=== PATIENT | female | born 1960 | race African-American/Black ===

== ENCOUNTER 2023-02-03 14:04 | Outpatient (AMB) | payer MEDICARE, MEDICAID, SELFPAY ==
--- NOTE | 2023-02-03 14:10 | HO.NEPHOV ---
HPI HPI Comments History of Present Illness Details I had the privilege of seeing Mir in follow-up for mild chronic kidney disease and hypertension. She feels well. She does not have any hematuria, dysuria, pedal edema, dizziness, chest pain, shortness of breath, nausea, vomiting or diarrhea. She is compliant with her medications. She avoids any nonsteroidal anti-inflammatory medications. She has no history of recent drug use. She tries to remain herself well hydrated. There were no new active issues at the time of this office visit. [facility] Medical History (Updated 02/07/23 @ 06:10 by Rupert Portillo MD) Chronic kidney disease Surgical History (Updated 02/03/23 @ 14:18 by Magy Ruiz MA) H/O knee surgery H/O toe surgery H/O tubal ligation Social History (Updated 02/03/23 @ 14:21 by Magy Ruiz MA) Alcohol intake: current Alcohol intake frequency: holidays/special occasions only Patient Tobacco Use Status: Never used Tobacco Substance Use Type: Marijuana Vital Signs 02/03/23 14:12 Height 5 ft 2.5 in Weight 174 lb 6 oz BMI 31.4 BP 116/72 Blood Pressure Location Lt brachial Position Sitting Pulse 62 Pulse Source Pulse Oximeter Physical Exam Vital Signs: Last Vital Signs Pulse 62 02/03/23 14:12 BP 116/72 02/03/23 14:12 BMI result Body Mass Index 31.4 Const General: comfortable and no acute distress Orientation/consciousness: patient oriented x3 HEENT Head: Yes normocephalic Mouth: Normal oral and palatal mucosa present Eyes EOM: EOMs intact bilaterally Neck Neck: Yes supple Resp Auscultation: clear to auscultation bilaterally Cardio Jugular venous distension: no JVD Rate: regular rate Heart sounds: Murmur heart sound present GI Palpation (GI): Soft to palpation Auscultation: normal bowel sounds General: Yes no CVA tenderness Back/Spine/Pelvis Back: no CVA tenderness Skin General skin exam: no rashes or lesions noted Neuro General: patient oriented x3 and moves all extremities Extrem General: Yes no pedal edema Assessment & Plan Assessment & Plan (1) CKD (chronic kidney disease) stage 2, GFR 60-89 ml/min: Code(s): N18.2 - Chronic kidney disease, stage 2 (mild) (2) Hypertension: Code(s): I10 - Essential (primary) hypertension Qualifiers: Hypertension type: primary hypertension Qualified Code(s): I10 - Essential (primary) hypertension Plan Her renal function is stable. Her blood pressure is at goal . She should remain well hydrated. She is on angiotensin receptor ildefonso. She should be on a low-sodium diet. She should lose some weight. I did not make any other medication changes today. All questions were answered. Follow-up blood work ordered and follow-up appointment given. Time for documentation, patient encounter and retrieval of data 21 minutes. Orders: Orders Electrolytes 02/03/23 I10 - Essential (primary) hypertension, N18.2 - Chronic kidney disease, stage 2 (mild) Blood Urea Nitrogen 02/03/23 I10 - Essential (primary) hypertension, N18.2 - Chronic kidney disease, stage 2 (mild) Creatinine 02/03/23 I10 - Essential (primary) hypertension, N18.2 - Chronic kidney disease, stage 2 (mild) Calcium 02/03/23 I10 - Essential (primary) hypertension, N18.2 - Chronic kidney disease, stage 2 (mild) Protein Creatinine Ratio, Ur 02/03/23 I10 - Essential (primary) hypertension, N18.2 - Chronic kidney disease, stage 2 (mild) Coding Level of Care Code Est Pt Level 3 (67478) Diagnoses CKD (chronic kidney disease) stage 2, GFR 60-89 ml/min N18.2 Primary hypertension I10 Hypertension type: primary hypertension
[2023-02-03 14:12] VITALS: BP 116/72; PULSE 62; BMI 31.4
== END 2023-02-03 14:58 | disposition home or self-care (01) ==
PROVIDERS: Visit Provider Internal Medicine Nephrology
DX: I12.9 Hypertensive chronic kidney disease with stage 1 through stage 4 chronic kidney disease, or unspecified chronic kidney disease (principal); N18.2 Chronic kidney disease, stage 2 (mild)
CPT/HCPCS: 99213

== ENCOUNTER → 2023-02-03 14:04 | Outpatient (BNVA) | payer MEDICARE, MEDICAID, SELFPAY | PROVIDERS: Visit Provider Internal Medicine Nephrology | DX: I12.9 Hypertensive chronic kidney disease with stage 1 through stage 4 chronic kidney disease, or unspecified chronic kidney disease (principal); N18.2 Chronic kidney disease, stage 2 (mild); Z79.899 Other long term (current) drug therapy | CPT/HCPCS: 99212 ==

== ENCOUNTER 2023-08-05 13:57 | Outpatient (AMB) | payer MEDICARE, MEDICAID, SELFPAY ==
--- NOTE | 2023-08-05 14:07 | HO.NEPHOV_ITS ---
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 She does not have any hematuria, dysuria, pedal edema, dizziness, chest pain, shortness of breath, nausea, vomiting or diarrhea. She is compliant with her medications. She avoids any nonsteroidal anti-in flammatory medications. She has no history of recent drug use. She tries to remain herself well hydrated. [facility] Medical History (Updated 02/07/23 @ 06:10 by Rupert Portillo MD) Chronic kidney disease Surgical History H/O knee surgery H/O toe surgery H/O tubal ligation Social History Alcohol intake: current Alcohol intake frequency: holidays/special occasions only Patient Tobacco Use Status: Never used Tobacco Substance Use Type: Marijuana Physical Exam Vital Signs: Last Vital Signs Pulse 58 08/05/23 14:09 BP 128/80 08/05/23 14:09 Pulse Ox 98 08/05/23 14:09 Oxygen Delivery Method Room Air 08/05/23 14:09 Const General: comfortable and no acute distress Orientation/consciousness: patient oriented x3 HEENT Head: Yes normocephalic Mouth: Normal oral and palatal mucosa present Eyes EOM: EOMs intact bilaterally Neck Neck: Yes supple Resp Auscultation: clear to auscultation bilaterally Cardio Jugular venous distension: no JVD Rate: regular rate GI Palpation (GI): Soft to palpation Auscultation: normal bowel sounds General: Yes no CVA tenderness Back/Spine/Pelvis Back: no CVA tenderness Skin General skin exam: no rashes or lesions noted Neuro General: patient oriented x3 and moves all extremities Extrem General: Yes no pedal edema Results Reviewed Nephrology Results: No Data to Display Assessment & Plan Assessment & Plan (1) CKD (chronic kidney disease) stage 2, GFR 60-89 ml/min: Code(s): N18.2 - Chronic kidney disease, stage 2 (mild) Category: Medical (2) Hypertension: Code(s): I10 - Essential (primary) hypertension Category: Medical Qualifiers: Hypertension type: primary hypertension Qualified Code(s): I10 - Essential (primary) hypertension Plan Her renal function is stable. Her blood pressure is at goal . She should remain well hydrated. She is on angiotensin receptor ildefonso. She should be on a low-sodium diet. She should lose some weight. I did not make any other medication changes today. All questions were answered. Follow-up blood work ordered and follow-up appointment given. Orders: Orders Electrolytes Today I10 - Essential (primary) hypertension, N18.2 - Chronic kidney disease, stage 2 (mild) Creatinine Today I10 - Essential (primary) hypertension, N18.2 - Chronic kidney disease, stage 2 (mild) Blood Urea Nitrogen Today I10 - Essential (primary) hypertension, N18.2 - Chronic kidney disease, stage 2 (mild) Coding Level of Care Code Est Pt Level 4 (37642) Diagnoses CKD (chronic kidney disease) stage 2, GFR 60-89 ml/min N18.2 Primary hypertension I10 Hypertension type: primary hypertension
[2023-08-05 14:09] VITALS: BP 128/80; PULSE 58; O2SAT 98
== END 2023-08-05 14:36 | disposition home or self-care (01) ==
PROVIDERS: Visit Provider Internal Medicine Nephrology
DX: I12.9 Hypertensive chronic kidney disease with stage 1 through stage 4 chronic kidney disease, or unspecified chronic kidney disease (principal); N18.2 Chronic kidney disease, stage 2 (mild)
CPT/HCPCS: 99213

== ENCOUNTER → 2023-08-05 13:57 | Outpatient (BNVA) | payer MEDICARE, MEDICAID, SELFPAY | PROVIDERS: Visit Provider Internal Medicine Nephrology | DX: I12.9 Hypertensive chronic kidney disease with stage 1 through stage 4 chronic kidney disease, or unspecified chronic kidney disease (principal); N18.2 Chronic kidney disease, stage 2 (mild) | CPT/HCPCS: 99212 ==

== ENCOUNTER 2024-02-03 13:33 | Outpatient (AMB) | payer MEDICARE, MEDICAID, SELFPAY ==
--- NOTE | 2024-02-03 13:35 | HO.NEPHOV_ITS ---
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 She does not have any hematuria, dysuria, pedal edema, dizziness, chest pain, shortness of breath, nausea, vomiting or diarrhea. She is compliant with her medications. She avoids any nonsteroidal anti-inflammatory medications. She has no history of recent drug use. She tries to remain herself well hydrated. [facility] Medical History (Updated 02/07/23 @ 06:10 by Rupert Portillo MD) Chronic kidney disease Surgical History H/O knee surgery H/O toe surgery H/O tubal ligation Social History Alcohol intake: current Alcohol intake frequency: holidays/special occasions only Patient Tobacco Use Status: Never used Tobacco Substance Use Type: Marijuana Review of Systems Const All systems reviewed & are unremarkable except as noted in HPI and below Physical Exam Vital Signs: Last Vital Signs Pulse 60 02/03/24 13:38 BP 118/80 02/03/24 13:38 Pulse Ox 97 02/03/24 13:38 Oxygen Delivery Method Room Air 02/03/24 13:38 BMI result Body Mass Index 29.9 Const General: comfortable and no acute distress Orientation/consciousness: patient oriented x3 HEENT Head: Yes normocephalic Mouth: Normal oral and palatal mucosa present Eyes EOM: EOMs intact bilaterally Neck Neck: Yes supple Resp Auscultation: clear to auscultation bilaterally Cardio Jugular venous distension: no JVD Rate: regular rate GI Palpation (GI): Soft to palpation Auscultation: normal bowel sounds General: Yes no CVA tenderness Back/Spine/Pelvis Back: no CVA tenderness Skin General skin exam: no rashes or lesions noted Neuro General: patient oriented x3 and moves all extremities Extrem General: Yes no pedal edema Results Reviewed Nephrology Results: No Data to Display Assessment & Plan Assessment & Plan (1) CKD (chronic kidney disease) stage 2, GFR 60-89 ml/min: Code(s): N18.2 - Chronic kidney disease, stage 2 (mild) Category: Medical (2) Hypertension: Code(s): I10 - Essential (primary) hypertension Category: Medical Qualifiers: Hypertension type: primary hypertension Qualified Code(s): I10 - Essential (primary) hypertension Plan Her renal function had been stable. Her blood pressure is at goal . She should remain well hydrated. She is on angiotensin receptor ildefonso. She should be on a low-sodium diet. She should lose some weight. I did not make any other medication changes today. All questions were answered. Follow-up blood work ordered and follow-up appointment given Orders: Orders Creatinine 6 Months I10 - Essential (primary) hypertension, N18.2 - Chronic kidney disease, stage 2 (mild) Protein Creatinine Ratio, Ur 6 Months I10 - Essential (primary) hypertension, N18.2 - Chronic kidney disease, stage 2 (mild) Blood Urea Nitrogen 6 Months I10 - Essential (primary) hypertension, N18.2 - Chronic kidney disease, stage 2 (mild) Electrolytes 6 Months I10 - Essential (primary) hypertension, N18.2 - Chronic kidney disease, stage 2 (mild) Coding Level of Care Code Est Pt Level 4 (12436) Diagnoses CKD (chronic kidney disease) stage 2, GFR 60-89 ml/min N18.2 Primary hypertension I10 Hypertension type: primary hypertension
[2024-02-03 13:38] VITALS: BP 118/80; PULSE 60; O2SAT 97; BMI 29.9
== END 2024-02-03 13:52 | disposition home or self-care (01) ==
LOC: HO.HKAS 13:34
PROVIDERS: Visit Provider Internal Medicine Nephrology
DX: I12.9 Hypertensive chronic kidney disease with stage 1 through stage 4 chronic kidney disease, or unspecified chronic kidney disease (principal); N18.2 Chronic kidney disease, stage 2 (mild)
CPT/HCPCS: 99214

== ENCOUNTER → 2024-02-03 13:33 | Outpatient (BNVA) | payer MEDICARE, MEDICAID, SELFPAY | PROVIDERS: Visit Provider Internal Medicine Nephrology | DX: I12.9 Hypertensive chronic kidney disease with stage 1 through stage 4 chronic kidney disease, or unspecified chronic kidney disease (principal); N18.2 Chronic kidney disease, stage 2 (mild) | CPT/HCPCS: 99212 ==

== ENCOUNTER 2024-08-17 15:27 | Outpatient (AMB) | payer MEDICARE, MEDICAID, SELFPAY ==
[2024-08-17 15:35] VITALS: BP 130/80; PULSE 60; O2SAT 97; BMI 28.3
--- NOTE | 2024-08-17 15:35 | HO.NEPHOV_ITS ---
Vital Signs 08/17/24 15:35 Height 5 ft 2.5 in Weight 157 lb BMI 28.3 BP 130/80 Blood Pressure Location Lt brachial Position Sitting Pulse 60 Pulse Source Pulse Oximeter Pulse Oximetry (%) 97 Oxygen Delivery Method Room Air Intake Visit Reasons: 6mon follow up- [facility] Supervisor [employer] Required: No Allergies NSAIDS (Non-Steroidal Anti-Inflamma Allergy (Verified 08/17/24 15:39) Unknown HPI Comments Details: Mir was seen in follow-up for mild chronic kidney disease and hypertension. She does not have any hematuria, dysuria, pedal edema, dizziness, chest pain, shortness of breath, nausea, vomiting or diarrhea. She is compliant with her medications. She avoids any nonsteroidal anti-inflammatory medications. She has no history of recent drug use. She tries to remain herself well hydrated. Her BP is well controlled. She has lost some weight. [facility] Medical History (Updated 08/17/24 @ 16:08 by Rupert Portillo MD) Chronic kidney disease Surgical History H/O knee surgery H/O toe surgery H/O tubal ligation Social History Alcohol intake: current Alcohol intake frequency: holidays/special occasions only Patient Tobacco Use Status: Never used Tobacco Substance Use Type: Marijuana Review of Systems Const All systems reviewed & are unremarkable except as noted in HPI and below Physical Exam Vital Signs: Last Vital Signs Pulse 60 08/17/24 15:35 BP 158/86 H 08/17/24 15:35 Pulse Ox 97 08/17/24 15:35 Oxygen Delivery Method Room Air 08/17/24 15:35 BMI result Body Mass Index 28.3 Const General: comfortable and no acute distress Orientation/consciousness: patient oriented x3 HEENT Head: Yes normocephalic Mouth: Normal oral and palatal mucosa present Eyes EOM: EOMs intact bilaterally Neck Neck: Yes supple Resp Auscultation: clear to auscultation bilaterally Cardio Jugular venous distension: no JVD Rate: regular rate GI Palpation (GI): Soft to palpation Auscultation: normal bowel sounds General: Yes no CVA tenderness Back/Spine/Pelvis Back: no CVA tenderness Skin General skin exam: no rashes or lesions noted Neuro General: patient oriented x3 and moves all extremities Extrem General: Yes no pedal edema Results Reviewed Nephrology Results: No Data to Display Assessment & Plan Assessment & Plan (1) CKD (chronic kidney disease) stage 2, GFR 60-89 ml/min: Code(s): N18.2 - Chronic kidney disease, stage 2 (mild) Category: Medical (2) Hypertension: Code(s): I10 - Essential (primary) hypertension Category: Medical Qualifiers: Hypertension type: primary hypertension Qualified Code(s): I10 - Essential (primary) hypertension (3) Proteinuria: Code(s): R80.9 - Proteinuria, unspecified Category: Medical Qualifiers: Proteinuria type: other Qualified Code(s): R80.8 - Other proteinuria Plan Her renal function had been stable. Her blood pressure is at goal . She should remain well hydrated. She is on angiotensin receptor ildefonso which I plan to maximize after cutting back on Amlodipine based on evolving data. She should be on a low-sodium diet . She should lose some weight. I did not make any other medication changes today. All questions were answered. Follow-up blood work ordered and follow-up appointment given Orders: Orders Creatinine 6 Months I10 - Essential (primary) hypertension, N18.2 - Chronic kidney disease, stage 2 (mild), R80.8 - Other proteinuria Blood Urea Nitrogen 6 Months I10 - Essential (primary) hypertension, N18.2 - Chronic kidney disease, stage 2 (mild), R80.8 - Other proteinuria Electrolytes 6 Months I10 - Essential (primary) hypertension, N18.2 - Chronic kidney disease, stage 2 (mild), R80.8 - Other proteinuria Protein Creatinine Ratio, Ur 6 Months I10 - Essential (primary) hypertension, N18.2 - Chronic kidney disease, stage 2 (mild), R80.8 - Other proteinuria Coding Level of Care Code Est Pt Level 4 (89034) Diagnoses CKD (chronic kidney disease) stage 2, GFR 60-89 ml/min N18.2 Primary hypertension I10 Hypertension type: primary hypertension Other proteinuria R80.8 Proteinuria type: other
--- OUTSIDE RECORDS SUMMARY | 2024-08-17 16:28 | XMS_ITS | Clinical Summary ---
Author Organization [facility] ity Address [address] [place] [address] Care Team Providers Care Ag Equipment Field Service Technician Name Role Phone Unavailable Primary Care Provider Unavailabl e Social History Tobacco Use Types Packs/Day Years Used Date Smoking Tobacco: Never Assessed Comments Unknown Sex and Gender Information Value Date Recorded Sex Assigned at Not on file Legal Sex Female 10:12 AM EST Gender Identity Not on file Sexual Orientation Not on file Plan of Treatment Health Maintenance Due Date Last Done Comments Breast Cancer Screening 1960 DTaP,Tdap,and Td Vaccines (1 - Tdap) 1977 Pneumococcal Vaccine: 50+ Ye ars (1 of 1 - PCV) 02/14/2008 Zoster Vaccines (1 of 2) 02/14/2008 COVID-19 Vaccine ( - 2023-2 5 season) 2023 Influenza Vaccine (Season Ended) 2024 RSV Immunization Adult Patie nts (1 - 1-dose 75+ series) 2033 HIB Vaccines Aged Out No longer eligi ble based on patient's age to complete this topic HPV Vaccines Aged Out No longer eligi ble based on patient's age to complete this topic Hepatitis A Vaccines Aged Out No long er eligible based on patient's age to complete this topic Hepatitis B Vaccines Aged Out No long er eligible based on patient's age to complete this topic IPV Vaccines Aged Out No longer eligi ble based on patient's age to complete this topic MMR Vaccines Aged Out No longer eligi ble based on patient's age to complete this topic Meningococcal ACWY Vaccine Aged Out N o longer eligible based on patient's age to complete this topic Meningococcal B Vaccine Aged Out No l onger eligible based on patient's age to complete this topic RSV Immunization Patients Un mckay 20 months Aged Out No longer eligible b ased on patient's age to complete this topic Varicella Vaccines Aged Out No longer eligible based on patient's age to complete this topic
--- OUTSIDE RECORDS SUMMARY | 2024-08-17 16:28 | XMS_ITS | Clinical Summary ---
Author Organization [facility] Address [address] [place] [address] Phone Care Team Providers Care Can Solderer Name Role Phone Marifer, Regulo Primary Care Provider [phone] Allergies Active Allergy Reactions Criticality Noted Date Comments Celecoxib Other (see comments) 10/04/2020 Ibuprofen Other (see comments) 10/04/2020 Lisinopril Other (see comments) 10/04/2020 Medications acetaminophen (TYLENOL) 500 MG tablet Active acyclovir (ZOVIRAX) 400 MG tablet Take 1 tablet by mouth 2 (two) times a day Active Diclofenac Sodium 1 % gel Activ e fluticasone (FLONASE) 50 MCG/ACT nasal spray Active loratadine (CLARITIN) 10 MG tablet Take 1 tablet by mouth 1 (one) time each day Active losartan (COZAAR) 50 MG tablet Take 1 tablet by mouth 1 (one) time each day Active meclizine (ANTIVERT) 25 MG tablet Take 1 tablet by mouth if needed Active meloxicam (MOBIC) 7.5 MG tablet Take 1 tablet by mouth if needed Active methocarbamol (ROBAXIN) 750 MG tablet Take 1 tablet by mouth if needed Active traMADol (ULTRAM) 50 MG tablet Take 50 mg by mouth 3 (three) times a day Active acetaminophen (TYLENOL 8 HOUR) 650 MG 8 hr tablet Take 650 mg by mouth every 8 (eight) hours if needed 09/11/2021 Active amLODIPine (NORVASC) 10 MG tablet Take 1 tablet by mouth 1 (one) time each day 09/10/2021 Active atorvastatin (LIPITOR) 20 MG tablet Take 20 mg by mouth 1 (one) time each day 09/12/2021 Active pregabalin (LYRICA) 75 MG capsule Take 75 mg by mouth in the morning and 75 mg in the evening. 08/28/2021 Active Active Problems Problem Noted Date Diagnosed Date Hypertension 03/12/2021 Acute nontraumatic kidney injury 10/04/2020 Chronic kidney disease 10/04/2020 Essential hypertension 10/04/2020 Family History Medical History Relation Comments Diabetes Mother Diabetes Sibling Relation Status Comments Father Mother Sibling Social History Tobacco Use Types Packs/Day Years Used Date Smoking Tobacco: Never Smokeless Tobacco: Never Alcohol Use Standard Drinks/Week Comments Never 0 (1 standard drink = 0.6 oz pur e alcohol) Comments Unknown Sex and Gender Information Value Date Recorded Sex Assigned at Not on file Legal Sex Female 4:49 PM EST Gender Identity Not on file Sexual Orientation Not on file Last Filed Vital Signs Vital Sign Reading Time Taken Comments Blood Pressure 112/72 09/24/2021 1:47 PM EDT Pulse 53 09/24/2021 1:47 PM EDT Temperature - - Respiratory Rate - - Oxygen Saturation 96% 03/12/2021 2:36 PM EST Inhaled Oxygen Concentration - - Weight 92.9 kg (204 lb 12.8 oz) 09/24/2021 1:47 PM EDT Height 157.5 cm (5' 2 ) 07/22/2019 12:0 0 PM EDT Body Mass Index 37.46 07/22/2019 12:00 PM EDT Plan of Treatment Health Maintenance Due Date Last Done Comments Breast Cancer Screening 1960 Pneumococcal Vaccine: 50+ Ye ars (1 of 2 - PCV) 1977 Colorectal Cancer Screening: Annual FOBT 2007 Colorectal Cancer Screening: Colonoscopy 2007 Colorectal Cancer Screening: Sigmoidoscopy 2007 Influenza Vaccine (Season Ended) 2024 Hepatitis B Vaccine Aged Out No longe r eligible based on patient's age to complete this topic Insurance [facility] [facility] Medicaid [employer] Medicaid Care Teams Can Solderer Relationship Specialty Start Date End Date Regulo Caicedo DO [address] [place] [address] PCP - General Osteopathic Medicine 03/12/21
== END 2024-08-17 16:17 | disposition home or self-care (01) ==
LOC: HO.HKAS 15:27
PROVIDERS: Visit Provider Internal Medicine Nephrology
DX: I12.9 Hypertensive chronic kidney disease with stage 1 through stage 4 chronic kidney disease, or unspecified chronic kidney disease (principal); N18.2 Chronic kidney disease, stage 2 (mild); R80.8 Other proteinuria
CPT/HCPCS: 99214

== ENCOUNTER → 2024-08-17 15:27 | Outpatient (BNVA) | payer MEDICARE, MEDICAID, SELFPAY | PROVIDERS: Visit Provider Internal Medicine Nephrology | DX: I12.9 Hypertensive chronic kidney disease with stage 1 through stage 4 chronic kidney disease, or unspecified chronic kidney disease (principal); N18.2 Chronic kidney disease, stage 2 (mild); R80.8 Other proteinuria | CPT/HCPCS: 99212 ==